=== PATIENT | male | born 2000 | race African-American/Black ===

== ENCOUNTER 2021-06-16 10:07 | Emergency (ER) | payer SELFPAY ==
[~2021-06-16] VITALS: Ht 165.1 cm; Wt 77.0 kg
[2021-06-16 10:38] VITALS: BP 128/71
[2021-06-16] MEDS ORDERED: KETOROLAC 60MG/2ML VIAL IM ONE (11:15)
[2021-06-16] MEDS ORDERED: NAPR-681 MT (11:38)
== END 2021-06-16 12:09 | disposition home or self-care (01) ==
LOC: ER 10:35 → EDBD 10:35 → ER 12:09
DX: S62.325A Displaced fracture of shaft of fourth metacarpal bone, left hand, initial encounter for closed fracture (principal); V43.52XA Car driver injured in collision with other type car in traffic accident, initial encounter; Y93.89 Activity, other specified; Y92.488 Other paved roadways as the place of occurrence of the external cause
CPT/HCPCS: 29130; 73130; 99283